=== PATIENT | female | born 1990 | race Caucasian/White ===

== ENCOUNTER 2017-05-21 18:32 | Emergency (ER) | payer SELFPAY ==
--- NOTE | 2017-05-21 19:03 | NUR ---
called for triage no response.
--- NOTE | 2017-05-21 19:21 | NUR ---
Called for triage, no response.
--- NOTE | 2017-05-21 19:51 | NUR ---
Called from for triage, no answer. 3rd call. LWBT.
== END 2017-05-21 19:53 | disposition left against medical advice (07) ==
LOC: ER 18:35
DX: Z53.21 Procedure and treatment not carried out due to patient leaving prior to being seen by health care provider (principal)